=== PATIENT | male | born 1960 | race Caucasian/White ===

== ENCOUNTER 2024-04-12 18:31 | Inpatient (IN) | payer MEDICARE, SELFPAY ==
[~2024-04-12 18:31] MED LIST: Iopamidol-370 76% 500 ML MDV (1 ML CHARGE) ONE
[2024-04-12] MEDS ORDERED: Boostrix 0.5 ML (Tdap) VIAL (>/=7 yrs of age) ONE (18:46)
[2024-04-12] MEDS ORDERED: fentaNYL 50 mcg/mL 1 mL Vial ONE ×2 (18:51→19:29)
[2024-04-12] MEDS ORDERED: Ketamine In 0.9 % NaCl 50 MG/5 ML SYRINGE ONE (19:40)
[2024-04-12] MEDS ORDERED: Lidocaine 1% w/Epinephrine 1:100K 20 ML VIAL ONE ×2 (19:42→19:45)
[2024-04-12 19:48] LABS: #Basophils 0.05 10x3/uL (0.0-0.2); #Eosinophils Less than 0.03 10x3/uL (0.0-0.7); %Basophils 0.2 % (0.0-1.0); %Eosinophils 0.1 % (0.0-10.0); %Lymphocytes 9.2 % (21.0-51.0); %Monocytes 5.6 % (0.0-10.0); %Neutrophils 83.2 % (42.0-75.0); Hematocrit 36.5 % (42.0-52.0); Hemoglobin 11.6 g/dL (14.0-18.0); Mean Corpuscular HGB CONC 31.8 g/dL (32.0-36.0); Mean Corpuscular Hemoglobin 29.4 pg (27.0-31.0); Mean Corpuscular Volume 92.6 fL (78.0-98.0); Mean Platelet Volume 9.7 fL (7.4-10.4); Platelet Count 180 10x3/uL (130-400); RBC Distribution Width 13.9 % (11.5-14.5); Red Blood Cell (RBC) Count 3.94 mill/uL (4.70-6.10)
[2024-04-12 20:01] LABS: INR-International Normal Ratio 1.8; Prothrombin Time 20.9 sec (12.0-14.7)
[2024-04-12 20:03] LABS: Alcohol Less than 10.0 mg/dL (Less than 10)
[2024-04-12 20:05] LABS: ALT (SGPT) 32 U/L (8-55); AST (SGOT) 39 U/L (5-34); Albumin 3.2 g/dL (3.4-4.8); Alkaline Phosphatase 40 U/L (40-110); Anion Gap 15 mmol/L (10-20); BUN (Urea Nitrogen) 17 mg/dL (8.4-25.7); Bilirubin, Total 0.4 mg/dL (0.2-1.2); Calc. Creatinine Clearance 0 mL/min (70-130); Calcium 7.8 mg/dL (7.8-10.44); Carbon Dioxide 18 mmol/L (23-31); Chloride 107 mmol/L (98-107); Estimated GFR 56; Globulin 1.8 g/dL (2.4-3.5); Glucose 306 mg/dL (80-115); Lipase 35 U/L (8-78); Potassium 4.1 mmol/L (3.5-5.1); Sodium 136 mmol/L (136-145); Troponin I Less than 0.010 ng/mL (< 0.028)
[2024-04-12 21:28] LABS: Amphetamine Not Detected (NotDetected); Barbiturates Screen Not Detected (NotDetected); Benzodiazepine Screen Not Detected (NotDetected); Cocaine Metabolite Screen Not Detected (NotDetected); Methadone Not Detected (NotDetected); Methamphetamine Not Detected (NotDetected); Opiate Screen Not Detected (NotDetected); Oxycodone Screen Not Detected (NotDetected); Phencyclidine (PCP) Not Detected (NotDetected); THC/Cannabinoid Screen Not Detected (NotDetected); Tricyclic Screen Not Detected (NotDetected)
[2024-04-12 21:34] LABS: Bilirubin Negative (Negative); Blood, Urine 3+ (Negative); CAUTI Indications for Culture Alt mental st,lethar; Clarity Clear (Clear); Glucose, Urine (Dipstick) Greater than 1000 mg/dL (Negative); Ketone, Urine 10 mg/dL (Negative); Leukocyte 25 Leu/uL (Negative); Nitrite Negative (Negative); Protein, Urine (Dipstick) Negative (Neg-Trace); Specific Gravity, Urine 1.049 (1.002-1.036); Squamous Epithelial None Seen HPF (0-3); Urobilinogen Normal mg/dL (Less than 2)
[2024-04-12 21:48] LABS: Bacteria/HPF Rare-Few HPF (None Seen)
[2024-04-12 21:52] LABS: Urine Culture Reflex No No
[2024-04-12] MEDS ORDERED: SUCCINYLCHOLINE/SOD CL,ISO/PF 200 MG/10 ML SYRINGE FS ONE (21:57)
[2024-04-12] MEDS ORDERED: PHENYLEPHRINE-NS 100 MCG/ML 10 ML SYRINGE ONE (21:57)
[2024-04-12] MEDS ORDERED: Rocuronium Bromide 10 MG/ML (10ML VIAL) ONE (21:57)
[2024-04-12] MEDS ORDERED: fentaNYL PF 100 MCG/2 ML SYRINGE ONE ×2 (21:57→23:42)
[2024-04-12] MEDS ORDERED: PROPOFOL 20 ML ONE (21:57)
[2024-04-12] MEDS ORDERED: Lidocaine 1% PF 5 ML VIAL ONE (21:57)
[2024-04-12] MEDS ORDERED: hydrALAZINE 20 MG/ML VIAL SLOW IVP PRN (22:07)
[2024-04-12] MEDS ORDERED: Glucagon 1 MG/ML KIT IM PRN (22:07)
[2024-04-12] MEDS ORDERED: Dextrose 50% Abboject 50 ML SYRINGE SLOW IVP PRN (22:07)
[2024-04-12] MEDS ORDERED: Ipratropium/Albuterol 3 ML NEB NEB PRN (22:07)
[2024-04-12] MEDS ORDERED: Dextrose 5% in Water 1,000 ML IV PRN (22:07)
[2024-04-12] MEDS ORDERED: Rib Fracture Protocol IV SCH (22:15)
[2024-04-12] MEDS ORDERED: Vasopressin 20 UNITS/ML VIAL ONE (22:28)
[2024-04-12] MEDS ORDERED: Albumin 5% 500 ML ONE (22:29)
[2024-04-12] MEDS ORDERED: cefOXitin 2 GM VIAL ONE (22:31)
[2024-04-12] MEDS ORDERED: ePHEDrine Sulfate 50 MG/10 ML VIAL ONE (22:33)
[2024-04-12] MEDS ORDERED: Sodium Chloride 0.9% 100 ML ONE (22:37)
[2024-04-12] MEDS ORDERED: Methylene Blue 50 MG/10 ML AMPUL ONE (22:54)
[2024-04-12] MEDS ORDERED: Ondansetron PF 4 MG/2 ML Vial ONE (23:16)
[2024-04-12] MEDS ORDERED: Dexamethasone 4 mg/ml Vial ONE (23:16)
[2024-04-12] MEDS ORDERED: SUGAMMADEX SODIUM 200 MG/2 ML VIAL ONE ×2 (23:33→23:34)
[2024-04-13] MEDS: Ketorolac Tromethamine 30 MG (1 mL) VIAL IVP SCH (00:32)
[2024-04-13] MEDS: Sodium Chloride 0.9% 1,000 ML IV SCH (00:33)
[2024-04-13] MEDS ORDERED: Electrolyte Replacement Protocol 1 EACH FS PRN (00:36)
[2024-04-13] MEDS ORDERED: hydrALAZINE 20 MG/ML VIAL SLOW IVP PRN (00:38)
[2024-04-13] MEDS: Morphine 4 MG/ML VIAL SLOW IVP PRN ×2 (02:22→16:01)
[2024-04-13] MEDS: Acetaminophen 650 MG Suppository PR SCH (02:24)
[2024-04-13] MEDS: HUM PROTHROMBIN CPLX(PCC)4FACT 2,000 UNITS IV SCH (02:54)
[2024-04-13 02:59] VITALS: BMI 30.9
[2024-04-13] MEDS: Insulin Lispro 100 UNIT/ML 10 ML VIAL SC PRN (05:12)
[2024-04-13] MEDS: cefOXitin 2 GM in Sodium Chloride 0.9% 100 ML IVPB SCH (05:17)
[2024-04-13 05:55] LABS: Anion Gap 15 mmol/L (10-20); BUN (Urea Nitrogen) 22 mg/dL (8.4-25.7); Calc. Creatinine Clearance 59 mL/min (70-130); Calcium 8.1 mg/dL (7.8-10.44); Carbon Dioxide 18 mmol/L (23-31); Chloride 108 mmol/L (98-107); Estimated GFR 44; Glucose 301 mg/dL (80-115); Magnesium 2.1 mg/dL (1.6-2.6); Potassium 6.2 mmol/L (3.5-5.1); Sodium 135 mmol/L (136-145)
[2024-04-13] MEDS ORDERED: Dextrose 50% Abboject 50 ML SYRINGE SLOW IVP PRN (06:03)
[2024-04-13] MEDS: Insulin Regular, Human 100 UNIT/ML 10 ML VIAL IVP SCH (06:14)
[2024-04-13] MEDS: CALCIUM GLUC 1 GM/NS 50 ML 1 GM in Premix 1 BAG IVPB SCH (06:15)
[2024-04-13] MEDS: Ipratropium/Albuterol 3 ML NEB NEB SCH (06:36)
[2024-04-13] MEDS ORDERED: Electrolyte Replacement Protocol FS PRN (07:00)
[2024-04-13] MEDS: Albuterol 1.25 MG (3 mL) NEB NEB SCH (07:42)
[2024-04-13] MEDS: Albuterol 2.5 MG (3 mL) NEB ONE (07:43)
[2024-04-13 09:01] LABS: Anion Gap 14 mmol/L (10-20); BUN (Urea Nitrogen) 21 mg/dL (8.4-25.7); Calc. Creatinine Clearance 69 mL/min (70-130); Calcium 8.1 mg/dL (7.8-10.44); Carbon Dioxide 19 mmol/L (23-31); Chloride 108 mmol/L (98-107); Estimated GFR 52; Glucose 321 mg/dL (80-115); Potassium 4.7 mmol/L (3.5-5.1); Sodium 136 mmol/L (136-145)
[2024-04-13] MEDS: Famotidine/PF 20 mg/2ml Vial SLOW IVP SCH (10:12)
[2024-04-13 10:36] LABS: Anion Gap 13 mmol/L (10-20); BUN (Urea Nitrogen) 21 mg/dL (8.4-25.7); Calc. Creatinine Clearance 69 mL/min (70-130); Calcium 8.2 mg/dL (7.8-10.44); Carbon Dioxide 19 mmol/L (23-31); Chloride 109 mmol/L (98-107); Estimated GFR 53; Glucose 304 mg/dL (80-115); Potassium 4.7 mmol/L (3.5-5.1); Sodium 136 mmol/L (136-145)
[2024-04-13 11:07] LABS: #Basophils Less than 0.03 10x3/uL (0.0-0.2); #Eosinophils Less than 0.03 10x3/uL (0.0-0.7); %Basophils 0.1 % (0.0-1.0); %Lymphocytes 4.5 % (21.0-51.0); %Monocytes 6.3 % (0.0-10.0); %Neutrophils 88.8 % (42.0-75.0); Hematocrit 27.1 % (42.0-52.0); Hemoglobin 8.9 g/dL (14.0-18.0); Mean Corpuscular HGB CONC 32.8 g/dL (32.0-36.0); Mean Corpuscular Hemoglobin 29.9 pg (27.0-31.0); Mean Corpuscular Volume 90.9 fL (78.0-98.0); Mean Platelet Volume 9.6 fL (7.4-10.4); Platelet Count 145 10x3/uL (130-400); RBC Distribution Width 13.8 % (11.5-14.5); Red Blood Cell (RBC) Count 2.98 mill/uL (4.70-6.10)
[2024-04-13] MEDS ORDERED: PROPOFOL 40 ML ONE (12:27)
[2024-04-13] MEDS ORDERED: Fentanyl 250 MCG/5 ML VIAL ONE (12:27)
[2024-04-13] MEDS ORDERED: Clindamycin/D5W 900 mg/50 ml Premix Bag ONE (13:02)
[2024-04-13] MEDS ORDERED: PHENYLEPHRINE-NS 100 MCG/ML 10 ML SYRINGE ONE (13:07)
[2024-04-13] MEDS ORDERED: Glycopyrrolate 0.2 MG/ML 5 ML SYRINGE ONE (13:07)
[2024-04-13] MEDS ORDERED: Vasopressin 20 UNITS/ML VIAL ONE (13:16)
[2024-04-13] MEDS ORDERED: Calcium Chloride 1 GM/10 ML Abboject SYRINGE ONE (13:18)
[2024-04-13] MEDS ORDERED: Esmolol 100 MG/10 ML VIAL ONE (13:31)
[2024-04-13] MEDS ORDERED: Ondansetron PF 4 MG/2 ML Vial ONE (14:05)
[2024-04-13] MEDS: D5 1/2 NS w/10 mEq KCl 1,000 ML/1,000 ML BAG IV SCH (16:01)
[2024-04-13] MEDS: HYDROcodone/Acetaminophen 7.5/325 mg Tablet PO PRN (17:59)
[2024-04-13] MEDS: Ondansetron PF 4 MG/2 ML Vial IVP PRN (19:46)
[2024-04-13] MEDS: Clindamycin/D5W 900 MG in Premix 1 BAG IVPB SCH ×2 (21:01→21:10)
[2024-04-14] MEDS: Insulin Lispro 100 UNIT/ML 10 ML VIAL SC PRN (00:38)
[2024-04-14 05:55] LABS: #Basophils Less than 0.03 10x3/uL (0.0-0.2); #Eosinophils Less than 0.03 10x3/uL (0.0-0.7); %Basophils 0.1 % (0.0-1.0); %Lymphocytes 7.8 % (21.0-51.0); %Monocytes 8.1 % (0.0-10.0); %Neutrophils 83.5 % (42.0-75.0); Hematocrit 27.7 % (42.0-52.0); Hemoglobin 9.1 g/dL (14.0-18.0); Mean Corpuscular HGB CONC 32.9 g/dL (32.0-36.0); Mean Corpuscular Hemoglobin 30.3 pg (27.0-31.0); Mean Corpuscular Volume 92.3 fL (78.0-98.0); Mean Platelet Volume 9.7 fL (7.4-10.4); Platelet Count 141 10x3/uL (130-400); RBC Distribution Width 14.3 % (11.5-14.5)
[2024-04-14 06:08] LABS: Anion Gap 13 mmol/L (10-20); BUN (Urea Nitrogen) 16 mg/dL (8.4-25.7); Calc. Creatinine Clearance 94 mL/min (70-130); Calcium 8.5 mg/dL (7.8-10.44); Carbon Dioxide 23 mmol/L (23-31); Chloride 107 mmol/L (98-107); Estimated GFR 75; Glucose 220 mg/dL (80-115); Potassium 4.8 mmol/L (3.5-5.1); Sodium 138 mmol/L (136-145)
[2024-04-14] MEDS ORDERED: hydrALAZINE 20 MG/ML VIAL SLOW IVP PRN (08:04)
[2024-04-14] MEDS ORDERED: Labetalol HCl 100 MG/20 ML VIAL SLOW IVP PRN (08:05)
[2024-04-14] MEDS: Enoxaparin 40 MG (0.4 mL) SYRINGE SC SCH ×2 (08:24→17:52)
[2024-04-14] MEDS: Finasteride 5 MG TAB PO SCH (08:32)
[2024-04-14] MEDS: Tamsulosin HCl 0.4 MG CAP PO SCH (08:32)
[2024-04-14] MEDS: Oxybutynin 5 MG TAB PO SCH (08:32)
[2024-04-14] MEDS: Lisinopril 2.5 MG TAB PO SCH (08:32)
[2024-04-14] MEDS ORDERED: Atorvastatin Calcium 20 MG TAB PO SCH (09:00)
[2024-04-14] MEDS: Acetaminophen 325 MG TAB PO SCH (09:30)
[2024-04-14] MEDS: Acetaminophen 325 MG TAB PO PRN (15:04)
[2024-04-14] MEDS: Atorvastatin Calcium 10 MG TAB PO SCH (19:35)
[2024-04-15] MEDS: Enoxaparin 40 MG (0.4 mL) SYRINGE SC SCH (08:46)
[2024-04-15] MEDS: Methocarbamol 500 MG TAB PO SCH (08:46)
[2024-04-15] MEDS: Docusate 100 MG CAP PO SCH (08:46)
[2024-04-15] MEDS: Enoxaparin 30 MG (0.3 mL) SYRINGE SC SCH (20:56)
[2024-04-15] MEDS: Lactulose 20 GM (30 mL) UDCUP PO SCH (20:56)
[2024-04-16] MEDS: Famotidine 20 MG TAB PO SCH (09:27)
[2024-04-16] MEDS: Rivaroxaban 10 MG TAB PO SCH (09:30)
[2024-04-16] MEDS: Enoxaparin 30 MG (0.3 mL) SYRINGE SC SCH (21:38)
[2024-04-17 06:30] LABS: Anion Gap 15 mmol/L (10-20); BUN (Urea Nitrogen) 18 mg/dL (8.4-25.7); Calc. Creatinine Clearance 122 mL/min (70-130); Calcium 8.4 mg/dL (7.8-10.44); Carbon Dioxide 25 mmol/L (23-31); Chloride 104 mmol/L (98-107); Estimated GFR 97; Glucose 223 mg/dL (80-115); Sodium 140 mmol/L (136-145)
[2024-04-17 06:46] LABS: #Basophils Less than 0.03 10x3/uL (0.0-0.2); %Basophils 0.2 % (0.0-1.0); %Eosinophils 0.3 % (0.0-10.0); %Lymphocytes 9.8 % (21.0-51.0); %Monocytes 9.5 % (0.0-10.0); %Neutrophils 79.3 % (42.0-75.0); Hemoglobin 8.4 g/dL (14.0-18.0); Mean Corpuscular HGB CONC 32.3 g/dL (32.0-36.0); Mean Corpuscular Hemoglobin 29.6 pg (27.0-31.0); Mean Corpuscular Volume 91.5 fL (78.0-98.0); Mean Platelet Volume 9.9 fL (7.4-10.4); Platelet Count 221 10x3/uL (130-400); RBC Distribution Width 13.7 % (11.5-14.5); Red Blood Cell (RBC) Count 2.84 mill/uL (4.70-6.10)
[2024-04-17 16:28] VITALS: BP 129/78; TEMP 98.5
[2024-04-17 16:47] VITALS: BMI 31.0
== END 2024-04-19 10:30 | DRG 958 ==
LOC: ERS 18:31 → SDC/OP 22:07 → CCU 22:08 → SURG B 04-14 10:31
PROVIDERS: ADMIT Surgery; ATTEND Surgery
PROC: 3E033XZ Introduction of Vasopressor into Peripheral Vein, Percutaneous Approach (ICD-10-PCS; 2024-04-12)
PROC: 30233J1 Transfusion of Nonautologous Serum Albumin into Peripheral Vein, Percutaneous Approach (ICD-10-PCS; 2024-04-12)
PROC: 0WJG0ZZ Inspection of Peritoneal Cavity, Open Approach (ICD-10-PCS; principal; 2024-04-13)
PROC: 0QSP04Z Reposition Left Metatarsal with Internal Fixation Device, Open Approach (ICD-10-PCS; 2024-04-13)
PROC: 0W9B00Z Drainage of Left Pleural Cavity with Drainage Device, Open Approach (ICD-10-PCS; 2024-04-13)
DX: S06.6XAA Traumatic subarachnoid hemorrhage with loss of consciousness status unknown, initial encounter (principal); E87.20 Acidosis, unspecified; S27.2XXA Traumatic hemopneumothorax, initial encounter; T79.7XXA Traumatic subcutaneous emphysema, initial encounter; N17.9 Acute kidney failure, unspecified; S22.20XA Unspecified fracture of sternum, initial encounter for closed fracture; S22.42XA Multiple fractures of ribs, left side, initial encounter for closed fracture; S06.5XAA Traumatic subdural hemorrhage with loss of consciousness status unknown, initial encounter; S43.034A Inferior dislocation of right humerus, initial encounter; S92.332A Displaced fracture of third metatarsal bone, left foot, initial encounter for closed fracture; S92.342A Displaced fracture of fourth metatarsal bone, left foot, initial encounter for closed fracture; S92.352A Displaced fracture of fifth metatarsal bone, left foot, initial encounter for closed fracture; V89.2XXA Person injured in unspecified motor-vehicle accident, traffic, initial encounter; E11.9 Type 2 diabetes mellitus without complications; N18.30 Chronic kidney disease, stage 3 unspecified; E87.5 Hyperkalemia; E66.9 Obesity, unspecified
CPT/HCPCS: 23650; 24620; 32551; 36415; 36416; 51702; 70450; 70498; 71045; 71260; 72125; 72170; 74177; 80048; 80053; 80306; 80307; 81001; 83690; 83735; 84484; 85025; 85610; 85730; 86850; 86900; 86901; 90471; 90715; 93005; 94640; 94760; 96365; 96375; 96376; A4314; C1713; C1874; C1894; G0390; J0613; J0694; J1100; J1650; J1815; J1885; J2272; J2405; J2704; J3010; J3480; J3490; J7030; J7168; J7620; P9045; Q9967